=== PATIENT | male | born 1980 | race Caucasian/White ===

== ENCOUNTER 2017-04-21 18:05 | Emergency (ER) | payer BC, MEDICARE ==
[2017-04-21] MEDS ORDERED: Ketorolac Tromethamine 30 MG/ML VIAL ONE (18:27)
--- NOTE | 2017-04-21 21:21 | ULT ---
RIGHT UPPER EXTREMITY VENOUS DUPLEX EXAM 04/21/17 HISTORY: Right upper extremity pain and swelling. Real time color doppler evaluation of the right upper extremity was performed to include the internal jugular, subclavian, axillary, brachial, basilic, and cephalic veins. This shows patent deep venous system with normal compressibility and augmentation. IMPRESSION: No evidence of DVT of the right upper extremity. POS: [facility]
== END 2017-04-21 20:08 | disposition home or self-care (01) ==
LOC: SCSER 18:05
DX: S53.401A Unspecified sprain of right elbow, initial encounter (principal); F41.9 Anxiety disorder, unspecified; F32.9 Major depressive disorder, single episode, unspecified; M10.9 Gout, unspecified; Z87.891 Personal history of nicotine dependence; Z79.899 Other long term (current) drug therapy; X50.9XXA Other and unspecified overexertion or strenuous movements or postures, initial encounter
CPT/HCPCS: 96372; J1885

== ENCOUNTER 2018-05-26 19:55 | Emergency (ER) | payer BC, MEDICARE ==
[2018-05-26] MEDS ORDERED: predniSONE 20 MG TAB ONE (20:24)
[2018-05-26] MEDS ORDERED: Morphine 4 MG/ML VIAL ONE ×3 (20:24→21:29)
== END 2018-05-26 21:45 | disposition home or self-care (01) ==
LOC: SCSER 19:55
DX: M10.9 Gout, unspecified (principal); F41.9 Anxiety disorder, unspecified; F32.9 Major depressive disorder, single episode, unspecified; Z79.899 Other long term (current) drug therapy
CPT/HCPCS: 96374; 96375; J1170; J2270